=== PATIENT | male | born 1980 | race Caucasian/White ===

== ENCOUNTER 2020-03-15 09:06 | Emergency (ER) | payer BC ==
[~2020-03-15] VITALS: Ht 182.9 cm; Wt 104.3 kg
[2020-03-15 09:06] VITALS: BP_SYST 134
[2020-03-15] MEDS ORDERED: DIPH-TET-PERTUS Vaccine 0.5 ML VIAL (ADACEL) I.M. ONE (09:30)
[2020-03-15 10:05] VITALS: BP_SYST 138
== END 2020-03-15 10:05 | disposition home or self-care (01) ==
LOC: SED 09:06
DX: S61.011A Laceration without foreign body of right thumb without damage to nail, initial encounter (principal); W45.8XXA Other foreign body or object entering through skin, initial encounter; Y93.89 Activity, other specified; Y92.89 Other specified places as the place of occurrence of the external cause; Y99.8 Other external cause status
CPT/HCPCS: 90715; 99283